=== PATIENT | male | born 1950 | race Caucasian/White ===

== ENCOUNTER 2020-02-13 09:13 | Inpatient (IN) | payer MEDICARE, OTHER, SELFPAY ==
[~2020-02-13] VITALS: Ht 167.6 cm; Wt 76.2 kg
--- NOTE | 2020-02-13 09:13 | NUR ---
Patient BIBA ALS, transferred to bed 3. Dr. Garcia, RT and RN are evaluating the patient at bedside.
[2020-02-13] MEDS ORDERED: ACETAMINOPHEN 650 MG SUPP RC ONE (09:20)
[2020-02-13] MEDS ORDERED: NACL 0.9% 1,000 ML IV ONE (09:20)
--- NOTE | 2020-02-13 09:29 | NUR ---
Lu Oreilly (daughter) [phone].
[2020-02-13 09:39] VITALS: BP 102/59
[2020-02-13 09:42] LABS: BASOPHILS % (AUTO) 0.1 % (0.0-2.0); HEMATOCRIT 40.3 % (36-52); HEMOGLOBIN 13.7 g/dL (12.0-18.0); LYMPHOCYTES # (AUTO) 0.3 K/uL (2.0-11.5); LYMPHOCYTES % (AUTO) 2.1 % (20.5-51.1); MEAN CORPUSCULAR HEMOGLOBIN 29 pg (27-31); MEAN CORPUSCULAR HGB CONC 34 g/dL (33-37); MEAN CORPUSCULAR VOLUME 84.1 fL (80-94); MONOCYTES # (AUTO) 0.7 K/uL (0.8-1.0); MONOCYTES % (AUTO) 5.1 % (1.7-9.3); NEUTROPHILS # (AUTO) 11.7 K/uL (1.8-7.7); NEUTROPHILS % (AUTO) 92.7 % (42.2-75.2); PLATELET COUNT (AUTO) 336 K/uL (140-450); RED BLOOD CELL COUNT(AUTO) 4.79 MIL/uL (4.20-6.10); RED CELL DISTRIBUTION WIDTH 13.9 % (11.6-13.7); WHITE BLOOD COUNT (AUTO) 12.7 K/uL (4.8-10.8)
[2020-02-13 09:58] LABS: PROTHROMBIN TIME 11.8 secs (10.8-13.4)
[2020-02-13 10:00] LABS: ALBUMIN 2.3 g/dL (3.4-5.0); ANION GAP 15.3 (8-16); CARBON DIOXIDE 25.4 mmol/L (21-32); CREATININE 1.9 mg/dL (0.6-1.3); POTASSIUM 3.7 mmol/L (3.5-5.1); TOTAL BILIRUBIN 1.4 mg/dL (0.0-1.0)
--- NOTE | 2020-02-13 10:00 | NUR ---
69/M FROM EMS BEING BAGGED UPON ARRIVAL DUE TO AGONAL RESPIRATIONS. UPON TRANSFER TO ED BED, PT BECAME MORE ALERT AND REPSONSIVE. ABLE TO FOLLOW COMMANDS AND WAS SWITCHED TO NRB AND TOLERATED WELL. AT THIS TIME PT IS ABLE TO FOLLOW COMMANDS AND IS TOLERATING NRB WELL WITH 91% SPO2.
[2020-02-13 10:14] LABS: LACTATE DEHYDROGENASE 414 U/L (85-227)
--- NOTE | 2020-02-13 11:30 | NUR ---
PT REMAINS ON NRB, NO ACUTE CHANGES. PT TOLERATING NRB WELL.
--- NOTE | 2020-02-13 13:04 | NUR ---
SPOKE WITH FAMILY -- ROBERT, UPDATED ON PLAN OF CARE. ALL QUESTIONS ANSWERED.
--- NOTE | 2020-02-13 14:00 | NUR ---
MULTIPLE ATTEMPTS MADE TO CATHETERIZE PATIENT. DR KIM MADE AWARE.
[2020-02-13] MEDS ORDERED: TAMS0.4C96 PO (19:27)
[2020-02-13] MEDS: LORazepam 2 MG/ML VIAL IM/IVP PRN (19:37)
[2020-02-13] MEDS ORDERED: LORazepam 2 MG/ML VIAL ONE (19:37)
--- NOTE | 2020-02-13 19:40 | NUR ---
RT CALLED AND AT BEDSIDE. RSV, FLU, ANTIGEN, AND NOVEL SWABS COLLECTED.
[2020-02-13 20:20] LABS: APPEARANCE,URINE CLOUDY (CLEAR); BILIRUBIN,URINE 1+ (NEGATIVE); BLOOD, URINE 2+ (NEGATIVE); COLOR,URINE ORANGE (YELLOW); LEUKOCYTE ESTERASE ,URINE NEGATIVE (NEGATIVE); NITRITE, URINE NEGATIVE (NEGATIVE); PH,URINE 5.5 (5.0-9.0); UGLUCOSE TRACE (NEGATIVE)
[2020-02-13 20:29] LABS: RBC,URINE 20-50 /HPF (0-5)
[2020-02-13 20:30] LABS: URINE AMORPHOUS URATE 1+ /HPF (None Seen); WBC,URINE 0-5 /HPF (0-5)
[2020-02-13] MEDS ORDERED: DOCUSATE SODIUM 100 MG GELCAP PO PRN (23:05)
[2020-02-13] MEDS ORDERED: HYDROcodone/APAP 5/325 MG 1 TAB TAB PO PRN (23:05)
[2020-02-13] MEDS ORDERED: ALBUTEROL HFA MDI 90 MCG/ACTUATION 8 GM INH PRN (23:05)
[2020-02-13] MEDS ORDERED: POTASSIUM CHLORIDE 10 MEQ TABER PO PRN (23:05)
[2020-02-13] MEDS: NACL 0.9% 1,000 ML IV SCH (23:05)
[2020-02-13] MEDS ORDERED: MAG SULF 2000 MG/WATER PREMIX 50 ML IV PRN (23:05)
[2020-02-13] MEDS ORDERED: MORPHINE SULFATE 2 MG/ML SYR IVP PRN (23:05)
[2020-02-13] MEDS ORDERED: ZOLPIDEM 5 MG TAB PO PRN (23:05)
[2020-02-13] MEDS ORDERED: ONDANSETRON 4 MG/2 ML VIAL IM/IVP PRN (23:05)
[2020-02-13] MEDS ORDERED: LORazepam 2 MG/ML VIAL IM/IVP PRN (23:05)
--- NOTE | 2020-02-13 23:17 | NUR ---
SPOKE TO ROEL AND DISCUSSED PATIENT CONDITION.
--- NOTE | 2020-02-13 23:19 | NUR ---
EMERGENCY CONTACT. - KATHY PATEL [phone]. TURKISH SPEAKING.
[2020-02-13] MEDS: ENOXAPARIN 80 MG/0.8 ML SYR SUBQ SCH (23:30)
--- NOTE | 2020-02-14 00:16 | NUR ---
PATIENT O2SAT @ 87% ON NON-REBREATHER 15L/MIN. PATIENT A&O X 4. RT CALLED TO EVALUATE PATIENT.
[2020-02-14 00:56] LABS: THYROID STIMULATING HORMONE 0.08 uIU/mL (0.34-3.74)
[2020-02-14 00:59] LABS: MAGNESIUM 0.5 mg/dL (1.8-2.4)
[2020-02-14 01:00] LABS: PHOSPHORUS 0.3 mg/dL (2.5-4.9)
--- NOTE | 2020-02-14 01:01 | NUR ---
primary nurse made aware of patient critical lab values.
[2020-02-14 01:46] LABS: BARBITURATE, URINE NEGATIVE ng/ml (NEG <=200); BENZODIAZEPINE, URINE NEGATIVE ng/mL (NEG <=200); CANNABINOID, URINE NEGATIVE ng/mL (NEG <=50); COCAINE, URINE NEGATIVE ng/mL (NEG <=300); OPIATE, URINE NEGATIVE ng/mL (NEG <=2000); PHENCYCLIDINE SCREEN,URINE NEGATIVE ng/mL (NEG <=25)
--- NOTE | 2020-02-14 02:30 | NUR ---
GRIPPER MACHINE OPERATOR FOR . GAVE NEW ORDERS FOR REPEATE TROPONIN @ 0600, AND NEUTRAPHOS 1 PAKET TID.
--- NOTE | 2020-02-14 02:43 | NUR ---
YONG NASAL SWAB WAS INVALID, PER LAB PCR NEEDS TO BE SENT. ERMD MADE AWARE.
--- NOTE | 2020-02-14 03:19 | NUR ---
RT AT BEDSIDE ASSESSING PATIENT.
--- NOTE | 2020-02-14 05:49 | NUR ---
0530 PLACED PATIENT ON BIPAP PER DR MISTRY. SETTING ARE IPAP 18 EPAP8 RR 20 100% FIO2. PATIENT SATING 87 AT THIS TIME
[2020-02-14 06:50] VITALS: BP 111/72
--- NOTE | 2020-02-14 07:17 | NUR ---
PATIENT HAS BEEN SCREENED AND CATEGORIZED MODERATE NUTRITION RISK. PATIENT WILL BE SEEN WITHIN 3-5 DAYS OF ADMISSION. 02/16/20 - 02/18/20 YAMIL KHAN MBA, RD
--- NOTE | 2020-02-14 07:25 | NUR ---
GAVE REPORT TO SAMY CORDERO, TRANSFER OF CARE.
[2020-02-14 07:50] LABS: RSV NEGATIVE (NEGATIVE)
[2020-02-14] MEDS ORDERED: AZITHROMYCIN 250 MG in DEXTROSE 5% 250 ML IV SCH (09:00)
[2020-02-14] MEDS ORDERED: LOVENOX 1MG/KG Q12H SUBQ SCH (09:00)
[2020-02-14 09:25] LABS: BASOPHILS % (AUTO) 0.1 % (0.0-2.0); EOSINOPHILS % (AUTO) 0.3 % (0.0-4.0); HEMATOCRIT 40.1 % (36-52); HEMOGLOBIN 13.7 g/dL (12.0-18.0); LYMPHOCYTES # (AUTO) 0.4 K/uL (2.0-11.5); LYMPHOCYTES % (AUTO) 4.4 % (20.5-51.1); MEAN CORPUSCULAR HEMOGLOBIN 29 pg (27-31); MEAN CORPUSCULAR HGB CONC 34 g/dL (33-37); MEAN CORPUSCULAR VOLUME 84.9 fL (80-94); MONOCYTES # (AUTO) 0.6 K/uL (0.8-1.0); NEUTROPHILS # (AUTO) 8.5 K/uL (1.8-7.7); NEUTROPHILS % (AUTO) 89.2 % (42.2-75.2); PLATELET COUNT (AUTO) 341 K/uL (140-450); RED BLOOD CELL COUNT(AUTO) 4.72 MIL/uL (4.20-6.10); RED CELL DISTRIBUTION WIDTH 14.4 % (11.6-13.7); WHITE BLOOD COUNT (AUTO) 9.5 K/uL (4.8-10.8)
[2020-02-14] MEDS: ASCORBIC ACID 500 MG TAB PO SCH (10:32)
[2020-02-14] MEDS: TAMSULOSIN 0.4 MG CAP PO SCH (10:32)
[2020-02-14] MEDS: ENOXAPARIN 80 MG/0.8 ML SYR SUBQ SCH ×2 (10:36→21:54)
[2020-02-14 10:38] VITALS: BP 110/59
[2020-02-14 10:38] LABS: CHOL/HDL RATIO 8.1 (1-4.5)
[2020-02-14 10:42] LABS: ALBUMIN 2.2 g/dL (3.4-5.0); ANION GAP 10.5 (8-16); CARBON DIOXIDE 29.9 mmol/L (21-32); CREATININE 1.3 mg/dL (0.6-1.3); MAGNESIUM 3.7 mg/dL (1.8-2.4); PHOSPHORUS 3.5 mg/dL (2.5-4.9); POTASSIUM 4.4 mmol/L (3.5-5.1); TOTAL BILIRUBIN 1.1 mg/dL (0.0-1.0)
[2020-02-14] MEDS: SODIUM PHOS / POTASSIUM PHOS 1 PKT PDR PO SCH ×3 (10:48→17:10)
[2020-02-14] MEDS ORDERED: cefTRIAXone 1,000 MG VIAL ONE (10:51)
[2020-02-14] MEDS: NACL 0.9% 1,000 ML IV SCH ×2 (10:52→20:10)
[2020-02-14] MEDS: AZITHROMYCIN 250 MG TAB PO SCH (11:03)
--- NOTE | 2020-02-14 11:28 | NUR ---
SOCIAL WORK NOTE: Patient's Orientation Unable To Assess Information Provided By ROEL PATEL - SON Comments SW WAS UNABLE TO MEET PATIENT AT BEDSIDE. SW COMPLETED ASSESSMENT WITH PATIENT'S SON. Business Analytics Analyst, Realtionship and Phone Number ROEL PATEL SON' [phone] Healthcare Power of Plant Health Care Technician No Does Patient Have a POLST No Identifying Problems No Social Work Triggers Is A Social Work Consult Needed No Mandate Report Filed No Explanation Of Identifying Problems PATIENT IS A 69-YEAR-OLD MAEL ADMITTED FOR SUSPECTED COVID. PATIENT HAS PMHX OF ARTHRITIS, ANXIETY, HLD, AND BPH. NO HX OF MENTAL HEALTH OR SUBSTANCE ABUSE WAS REPORTED. Admitted From Home Pre-Admission Level Of Functioning Status Independent/Ambulatory Prior Resources/Services Used In Last 12 Months No Prior Resources Used Prior DME No Prior DME Used Dialysis Comments N/A Living Situation Lives With Family House Patient Had Caregiver No Home Support No Caregiver Issues Financial Issues No Known Financial Issue Referral To The Financial Counselor Needed No Factors/Needs No D/C Needs Identified Pt/Rep Participated In Discharge Plan Yes Patient/Family Agress With Discharge Plan Yes Discharge Plan Comments TENTATIVE DISCHARGE PLAN IS FOR PATIENT TO RETURN HOME. DC Plan Status Initiated
[2020-02-14] MEDS: VITAMIN D 400 IU TAB PO SCH (11:59)
[2020-02-14 14:13] VITALS: BP 117/68
[2020-02-14 18:50] VITALS: BP 105/65
--- NOTE | 2020-02-14 19:42 | NUR ---
Hand off report given to Sheri CORDERO for continuation of nursing care
--- NOTE | 2020-02-14 19:42 | NUR ---
RECEIVED REPORT FROM CONSUELO PABLO FOR CONTINUATION OF CARE AT THIS TIME.
--- NOTE | 2020-02-14 20:15 | NUR ---
PT SITTING UPRIGHT IN BED, PT IS AWAKE A/OX4 AND COMMUNICATING WITH ME IN SUDANESE. PT REQUESTED THAT I PUT HIS PHONE TO CHARGE IN HIS ROOM USING HIS SLOT EDITOR. [employer] [employer] ADMIN. PT TOLERATED WELL. PT ON BIPAP SAO2@96%. BED IS LOCKED AND IN LOWEST POSITION. SIDE RAILSX1. NO DISTRESS NOTED AT THIS TIME. NS RUNNING PER MD ORDERS. LIGHTS TURNED OFF PER PT REQUEST. WILL CONTINUE TO MONITOR.
--- NOTE | 2020-02-14 21:55 | NUR ---
PER DAUGHTER RANI PT HAS NKA AND PMH OF ELEVATED CHOLESTEROL, ANXIETY, AND ARTHRITIS.
--- NOTE | 2020-02-14 21:55 | NUR ---
SPOKE WITH THE PTS DAUGHTER virginia-[phone] PER THE PTS REQUEST BECAUSE HE BELIEVED THAT SHE WAS GOING TO BRING HIM BOTTLES OF WATER TO DRINK. THE PT'S DAUGHTER STATED THAT IT WAS A MISUNDERSTANDING. I PROVIDED THE PTS DAUGHTER WITH A STATUS UPDATED
--- NOTE | 2020-02-14 22:00 | NUR ---
PT RESTING. PT ON BIPAP SAO2@91%. NO VISIBLE DISTRESS NOTED. BED IS LOCKED AND IN LOWEST POSITION. SIDE RAILSX1. NO DISTRESS NOTED AT THIS TIME. NS RUNNING PER MD ORDERS. CALL LIGHT WITHIN REACH. WILL CONTINUE TO MONITOR
--- NOTE | 2020-02-14 22:30 | NUR ---
RT CALLED DUE TO PT DESATTING TO 75% ON BIPAP
--- NOTE | 2020-02-14 22:48 | NUR ---
RT AND EMT AT BEDSIDE. PT SITTING UPRIGHT IN BED AND REMOVED HIS BIPAP
--- NOTE | 2020-02-14 23:00 | NUR ---
ACCORDING TO [facility] JIG BOX OPERATOR, PTS NEW ROOM ON THE TELEMETRY FLOOR IS NOT CLEAN OR READY FOR PT TRANSFER AT THIS TIME.
[2020-02-14 23:58] VITALS: BP 87/52
--- NOTE | 2020-02-15 00:22 | NUR ---
CALLED REPORT TO CONSUELO ALONZO FOR TRANSFER OF CARE AND ADMISSION TO TELEMETRY FLOOR.
--- NOTE | 2020-02-15 01:10 | NUR ---
Patient will be admitted to care of . Admited to TELEMETRY. Will go to room 102A. Belongings list completed. Report to CONSUELO ALONZO.
--- NOTE | 2020-02-15 01:10 | NUR ---
RECEIVED PATIENT FROM ER VIA GURNEY. PATIENT IS ABLE TO MAKE NEEDS KNOWN. RESPIRATIONS TACHYPNEIC AND SLIGHTLY LABORED UPON EXERTION. CONTINUES ON BIPAP. RT AT BEDSIDE. SKIN ASSESSMENT COMPLETED. SKIN WARM, DRY AND INTACT. SALINE LOCK TO RIGHT WRIST 18G PATENT/INTACT. IV SITE TO LEFT AC 20G PATENT/INTACT, INFUSING FLUIDS WELL. NO C/O PAIN. NO S/S ACUTE DISTRESS. ABDOMEN SOFT, NONTENDER, NONDISTENDED. BOWEL SOUNDS ACTIVE X4 QUADRANTS. PATIENT IS CONTINENT OF B/B. PLAN OF CARE DISCUSSED. PATIENT ORIENTED TO ROOM/STAFF AND CALL LIGHT. MRSA SCREEN COMPLETED. ISOLATION PRECAUTIONS OBSERVED BY ALL STAFF. SAFETY PRECAUTIONS IN PLACE. FREQUENT ROUNDS BY ALL STAFF. CALL LIGHT WITHIN REACH.
--- NOTE | 2020-02-15 01:21 | NUR ---
PT TRANSPORTED FROM ED TO 102A PT TOLERATED TRANSPORT FAIRLY WELL. PT SCOOTED FROM TRANSPORT BED TO ROOM BED WITH MINIMAL HELP. PT WAS REMOVED FROM VISION BIPAP AND PLACED ON VOCSN DUE TO TRANSPORT. VISION BIPAP DOES NOT HAVE BACK UP BATTERY & VOCSN DOES. PT REMAINS ON VOCSN AT THIS TIME WITH ALL SETTINGS MATCHING VISION.
--- NOTE | 2020-02-15 03:30 | NUR ---
PATIENT TRIED TO GET OUT OF BED TO USE RESTROOM. PROVIDED EDUCATION REGARDING USE OF BEDPAN AND URINAL FOR SAFETY AND TO GIVE ADEQUATE REST PERIODS. PATIENT VERBALIZED UNDERSTANDING. PATIENT SAFELY IN BED. FREQUENT ROUNDS MADE BY ALL STAFF.
[2020-02-15 04:00] VITALS: BP 107/71
[2020-02-15] MEDS: NACL 0.9% 1,000 ML IV SCH ×3 (04:22→23:36)
--- NOTE | 2020-02-15 04:47 | NUR ---
PT WAS PLACE BACK ON VISION W/ NO CHANGES TO SETTINGS ONCE AGAIN
--- NOTE | 2020-02-15 05:00 | NUR ---
PATIENT ASLEEP IN BED. BIPAP IN PLACE. NO EPISODES OF TRYING TO GET OUT OF BED OR REMOVING MASK. FREQUENT ROUNDS BY ALL STAFF. ISOLATION PRECAUTIONS OBSERVED BY ALL STAFF.
--- NOTE | 2020-02-15 06:49 | NUR ---
FNS REFERRAL RECEIVED ON 02/15/20 FOR UNKNOWN / N/A NUTRITIONAL HX PER RN I/A. PT CHART REVIEWED (BMI, BS, DIET ORDER, H&P...). PATIENT CONTINUES TO BE CATEGORIZED MODERATE NUTRITION RISK. PATIENT WILL BE SEEN WITHIN 3-5 DAYS OF ADMISSION. 02/16/20 - 02/18/20 YAMIL KHAN MBA, RD
--- NOTE | 2020-02-15 07:42 | NUR ---
ENDORSED TO AM SHIFT NURSE FOR CONTINUITY OF CARE.
[2020-02-15 08:00] VITALS: BP 105/66
[2020-02-15 08:19] LABS: T4 (THYROXINE) 7.4 ug/dL (4.5-12.0)
[2020-02-15 08:42] LABS: BASOPHILS % (AUTO) 0.1 % (0.0-2.0); HEMATOCRIT 40.3 % (36-52); HEMOGLOBIN 13.6 g/dL (12.0-18.0); LYMPHOCYTES # (AUTO) 0.4 K/uL (2.0-11.5); LYMPHOCYTES % (AUTO) 4.1 % (20.5-51.1); MEAN CORPUSCULAR HEMOGLOBIN 29 pg (27-31); MEAN CORPUSCULAR HGB CONC 34 g/dL (33-37); MONOCYTES # (AUTO) 0.5 K/uL (0.8-1.0); MONOCYTES % (AUTO) 5.3 % (1.7-9.3); NEUTROPHILS # (AUTO) 8.3 K/uL (1.8-7.7); NEUTROPHILS % (AUTO) 90.5 % (42.2-75.2); PLATELET COUNT (AUTO) 370 K/uL (140-450); RED BLOOD CELL COUNT(AUTO) 4.68 MIL/uL (4.20-6.10); RED CELL DISTRIBUTION WIDTH 14.3 % (11.6-13.7); WHITE BLOOD COUNT (AUTO) 9.1 K/uL (4.8-10.8)
[2020-02-15 09:33] LABS: ALBUMIN 2.1 g/dL (3.4-5.0); ANION GAP 12.5 (8-16); CARBON DIOXIDE 28.2 mmol/L (21-32); CREATININE 1.1 mg/dL (0.6-1.3); MAGNESIUM 3.2 mg/dL (1.8-2.4); PHOSPHORUS 3.3 mg/dL (2.5-4.9); POTASSIUM 3.7 mmol/L (3.5-5.1)
[2020-02-15] MEDS: VITAMIN D 400 IU TAB PO SCH (10:20)
[2020-02-15] MEDS: SODIUM PHOS / POTASSIUM PHOS 1 PKT PDR PO SCH ×3 (10:21→17:36)
[2020-02-15] MEDS: AZITHROMYCIN 250 MG TAB PO SCH (10:21)
[2020-02-15] MEDS: ASCORBIC ACID 500 MG TAB PO SCH (10:21)
[2020-02-15] MEDS: TAMSULOSIN 0.4 MG CAP PO SCH (10:21)
[2020-02-15] MEDS: ENOXAPARIN 80 MG/0.8 ML SYR SUBQ SCH ×2 (10:22→21:25)
--- NOTE | 2020-02-15 10:30 | NUR ---
SCHEDULED MEDICATIONS GIVEN. EDUCATION PROVIDED. PATIENT INITIALLY REFUSE LOVENOX, THEN EXPLAINED TO THE PT REGARDING THE INDICATION OF LOVENOX AND POSSIBLE HAVE BLOOD CLOT IF NOT GETTING OT. PATIENT VERBALIZED UNDERSTANDING AND AGREED TO GET IT. SAFETY MEASURES IN PLACE, CALL LIGHT WITHIN REACH. WILL CONTINUE TO MONITOR.
[2020-02-15 12:00] VITALS: BP 104/64
--- NOTE | 2020-02-15 13:40 | NUR ---
HUNG NEW BAG OF IVF NS. NETRO-PHOS GIVEN. EDUCATION PROVIDED. PATIENT AWAKE WITH BIPAP. RT CALLED TO CHECK THE BIPAP MACHINE WITH HIGH PITCHED ALARM. RT STATED WILL CHECK THE PATIENT. WILL CONTINUE TO MONITOR.
[2020-02-15 16:00] VITALS: BP 112/62
--- NOTE | 2020-02-15 16:53 | NUR ---
LATE ENTRY: DISCHARGE PLANNING: CRYPTOLOGICAL TECHNICIAN CECILIO OF [facility] PROVIDED ME WITH AUTH #[id number]. Addendum: 02/18/20 at 0902 by Tash Addison CM REMAINS INTUBATED TO VENT, FIO2 100%, PEEP 14. SEDATED WITH PROPOFOL. ON REMDESIVIR, DECADRON, AZITHROMYCIN, ROCEPHIN. CONTACTED [facility] AT [phone], ABLE TO SPEAK TO CRYPTOLOGICAL TECHNICIAN ALLEN AFTER 35 MINS ON HOLD. PER KEITH, STAY IS AUTHORIZED UNTIL DISCHARGE. HE ALSO CONFIRMED THAT THEY RECEIVED 21 PAGES OF UPDATED CLINICALS.
--- NOTE | 2020-02-15 18:54 | NUR ---
PATIENT WAS FOUND PULLED OUT IV, PULLED OUT BIPAP, TRYING TO GO TO THE RESTROOM. RT CALLED AND PUT BACK ON BIPAP. ASKED AUSTRIAN SPEAKING STORE LOSS PREVENTION MANAGER TO INFORM PATIENT TO STAY IN BED, AND USE URINARY INSTEAD OF GOING OUT BED, ALSO USE CALL LIGHT IF NEEDS HELP. PATIENT WAS ABLE TO USE THE URINARY EARLIER TODAY, BUT GOT CONFUSED NOW. PATIENT'S FAMILY MEMBERS AT OUTSIDE OF THE HOSPITAL. NEW IV STARTED AT LEFT FOREARM 22G WITH 1ST ATTEMPT. RECONNECT THE IVF. INFUSING WELL. PATIENT REMAIN IN BED AND CALM AT THIS POINT. WILL ENDORSE PATIENT TO UX ENGINEER RN FOR CONTINUITY OF CARE.
--- NOTE | 2020-02-15 19:25 | NUR ---
ENDORSED PATIENT TO REWINDER OPERATOR HELPER RN FOR CONTINUITY OF CARE. PATIENT WITH BIPAP IN STABLE CONDITION.
--- NOTE | 2020-02-15 19:26 | NUR ---
RECEIVED REPORT FROM ALMAZ AYERS. PT AOX2, CONFUSED, ON BIPAP, NO S/S RESPIRATORY DISTRESS. NO C/O PAIN AT THIS TIME. IV SITE LFA 22G PATENT INTACT, INFUSING IVF ORDERED. SAFETY MEASURES IN PLACE. CALL LIGHT WITHIN REACH. WILL CONTINUE TO MONITOR
[2020-02-15 20:00] VITALS: BP 116/70
--- NOTE | 2020-02-15 21:30 | NUR ---
ADMINISTERED SCHEDULED MEDICATION, TOLERATED WELL. WILL CONTINUE TO MONITOR
[2020-02-15] MEDS: LORazepam 2 MG/ML VIAL IM/IVP PRN (23:30)
[2020-02-16] VITALS (14 sets, daily range): BP systolic 97–134; BP diastolic 60–81
--- NOTE | 2020-02-16 01:00 | NUR ---
PT TOOK OFF BIPAP, PULLED OUT IV LINES, GOT UP AND TRIED TO WALK OUT THE DOOR. CALLED RT AND ASSET PROTECTION ASSISTANT TO BEDSIDE. PT ATTEMPTED TO HIT. REORIENTED PT BACK TO BED. PLACED BIPAP BACK ONTO PT, O2 SAT SLOWLY CLIMBING TO 86%, PT IS STABLE, INSTRUCTED PT TO KEEP BIPAP ON AND EXPLAINED THE IMPORTANCE OF IT, NO DISTRESS NOTED. WILL CONTINUE TO MONITOR
--- NOTE | 2020-02-16 03:14 | NUR ---
BIPAP IN PLACE, O2 SAT 89%, RESPIRATIONS EVEN AND UNLABORED. NO S/S ACUTE DISTRESS NOTED. WILL CONTINUE TO MONITOR
--- NOTE | 2020-02-16 05:30 | NUR ---
PT PULLED OUT BIPAP. PLACED BACK ON. O2 SAT SLOWLY CLIMBING T0 87%,. PT IS IN STABLE CONDITION. WILL CONTINUE TO MONITOR. MADE AWARE. PLACED NEW ORDER FOR SITTER.
--- NOTE | 2020-02-16 07:01 | NUR ---
FNS CONSULT FOR MALNUTRITION RECEIVED ON 02/16/20. PATIENT IS RESCREENED BY RD AND NOW CATEGORIZED HIGH NUTRITIONAL RISK. PATIENT WILL BE SEEN TODAY 02/16/[address] INITIAL ASSESSMENT/RECOMMENDATIONS WILL BE CHARTED. YAMIL KHAN MBA, RD
--- NOTE | 2020-02-16 07:20 | NUR ---
PER NIGHT NURSE PT SIGNED DNR STATUS AND REFUSED TO BE INTUBATED. ER DOCTOR EXPLAINED RISK AND CONSEQUENCES, ATTENDING PAGED TO CHANGE FULL CODE TO DNR. JUSTINO IN CHART Addendum: 02/16/20 at 1115 by Do Clayton RN DISREGARD ABOVE NOTE, WRONG PT.
--- NOTE | 2020-02-16 07:39 | NUR ---
ENDORSED PT TO DAY RN FOR CONTINUITY OF CARE. PT IS IN STABLE CONDITION
--- NOTE | 2020-02-16 07:40 | NUR ---
RECEIVED REPORT FROM NIGHT NURSE FOR CONTINUITY OF CARE. PT IS STABLE. PT ON BIPAP, PT HAS LFA 22G INFUSING NS AT 100, PT AAOX1 SLOVENIAN SPEAKING, SAFETY MEASURES IN PLACE, WILL CONTINUE TO MONITOR,
--- NOTE | 2020-02-16 09:20 | NUR ---
02/16/20 RD INITIAL ASSESSMENT COMPLETED PLEASE REFER TO NUTRITION ASSESSMENT UNDER CARE ACTIVITY FOR ESTIMATED NUTRITIONAL NEEDS. RD RECOMMENDATIONS: 1. RECOMMEND CONTINUE MECHANICAL SOFT DIET. 2. WILL ADD HEALTHSHAKES TID WITH MEALS. 3. ADJUST DIET NEEDED PER SWALLOW EVALUATION RECOMMENDATIONS. 4. F/U 2-3 DAYS; HIGH RISK YAMIL KHAN MBA, RD
[2020-02-16] MEDS: ENOXAPARIN 80 MG/0.8 ML SYR SUBQ SCH ×2 (09:44→21:00)
[2020-02-16] MEDS: TAMSULOSIN 0.4 MG CAP PO SCH (09:45)
[2020-02-16] MEDS: SODIUM PHOS / POTASSIUM PHOS 1 PKT PDR PO SCH ×3 (09:45→13:34)
[2020-02-16] MEDS: VITAMIN D 400 IU TAB PO SCH (09:45)
[2020-02-16] MEDS: ASCORBIC ACID 500 MG TAB PO SCH (09:46)
[2020-02-16] MEDS: AZITHROMYCIN 250 MG TAB PO SCH (09:46)
--- NOTE | 2020-02-16 10:02 | NUR ---
ADMINISTERED SCHEDULED MEDICATION, MEDICATION EDUCATION PROVIDED. PT TOLERATED WELL. PT IS STABLE, WILL CONTINUE TO MONITOR.
[2020-02-16 10:04] LABS: BASOPHILS # (AUTO) 0.1 K/uL (0.00-0.22); BASOPHILS % (AUTO) 0.5 % (0.0-2.0); HEMOGLOBIN 13.8 g/dL (12.0-18.0); LYMPHOCYTES # (AUTO) 0.9 K/uL (2.0-11.5); MEAN CORPUSCULAR HEMOGLOBIN 29 pg (27-31); MEAN CORPUSCULAR HGB CONC 32 g/dL (33-37); MEAN CORPUSCULAR VOLUME 88.9 fL (80-94); MONOCYTES # (AUTO) 0.5 K/uL (0.8-1.0); NEUTROPHILS # (AUTO) 10.8 K/uL (1.8-7.7); NEUTROPHILS % (AUTO) 88.5 % (42.2-75.2); PLATELET COUNT (AUTO) 518 K/uL (140-450); RED BLOOD CELL COUNT(AUTO) 4.84 MIL/uL (4.20-6.10); RED CELL DISTRIBUTION WIDTH 14.4 % (11.6-13.7); WHITE BLOOD COUNT (AUTO) 12.2 K/uL (4.8-10.8)
[2020-02-16 10:39] LABS: ALBUMIN 2.3 g/dL (3.4-5.0); ANION GAP 23.6 (8-16); CARBON DIOXIDE 19.4 mmol/L (21-32); CREATININE 1.5 mg/dL (0.6-1.3); MAGNESIUM 2.6 mg/dL (1.8-2.4); PHOSPHORUS 6.9 mg/dL (2.5-4.9)
[2020-02-16 10:53] LABS: PHOSPHORUS 4.8 mg/dL (2.5-4.9)
--- NOTE | 2020-02-16 11:06 | NUR ---
RAPID RESPONSE CALLED TO PT ROOM. PT WAS INTUBATED BY DR. SWANSON. ETT 7.0 ETT SECURED @ 22 CM AT THE TEETH. PLACED ON MECHANICAL VENTILATION AC/VC, RR 14, VOLUME 500, PEEP +14, 100%. SATURATION STABLE AT 90%. VENT PLUGGED INTO RED OUTLET AND BMV AT BEDSIDE. NO SIGNS OF RESPIRATORY DISTRESS. WILL CONTINUE TO MONITOR.
[2020-02-16] MEDS ORDERED: PROPOFOL 1000 MG/100 ML PREMIX 100 ML IV ONE (11:08)
[2020-02-16] MEDS ORDERED: ETOMIDATE 20 MG/10 ML VIAL IVP ONE (11:11)
[2020-02-16] MEDS ORDERED: ROCURONIUM 50 MG/5 ML VIAL IV ONE (11:12)
--- NOTE | 2020-02-16 11:21 | NUR ---
ETOMIDATE 20MG AND ROCURONIUM 40MG GIVEN PER DR. SWANSON'S ORDER FOR INTUBATION, PT TOLERATED WELL, WILL CONTINUE TO MONITOR.
[2020-02-16] MEDS: PROPOFOL 1000 MG/100 ML PREMIX 100 ML IV PRN ×2 (11:25→23:40)
[2020-02-16] MEDS ORDERED: COMMUNICATION ORDER MC PRN (11:50)
--- NOTE | 2020-02-16 11:55 | NUR ---
ENDORSE PT TO ICU NURSE FOR CONTINUITY OF CARE, PT IS ON VENT. PT'S DAUGHTER DON NOTIFIED PT IS IN ICU,
--- NOTE | 2020-02-16 11:56 | NUR ---
RECEIVED BEDSIDE REPORT FROM TELE NURSE ADAM, PT HAS JUST BEEN INTUBATED, ETT 7.0 TAPED ON 22 TO THE LIP, PT ON VENT ACVC FIO2 100%, RATE 14, PEEP 14, TV 500ML, TOLERATING WELL, SATURATING @ 100%, OGT IN PLACE, CONFIRMED PLACEMENT BY AUSCULTATION, HINES CATH IN PLACE DRAINING TO GRAVITY, INITIAL ASSESSMENT DONE, ALL SAFETY PRECAUTION MET, CALL LIGHT WITHIN REACH, WILL CONTINUE TO MONITOR.
[2020-02-16] MEDS: NACL 0.9% 1,000 ML IV SCH ×2 (12:54→21:05)
--- NOTE | 2020-02-16 13:47 | NUR ---
[email or web address] HELD D/T PT PHOSPHATE HAS BEEN TRENDING UP, YESTERDAY 6.9, TODAY 4.8.
--- NOTE | 2020-02-16 14:40 | NUR ---
PAGED DR VELAZQUEZ TO REPORT ABG RESULTS, WAITING FOR CALL BACK.
[2020-02-16] MEDS ORDERED: remdesivir CLINICAL MONITORING 1 EA MISC MC PRN (15:20)
--- NOTE | 2020-02-16 15:20 | NUR ---
RECEIVED A CALL BACK FROM DR VELAZQUEZ, ORDERED TO INCREASE RATE TO 16. REPEAT ABG IN AM.
--- NOTE | 2020-02-16 15:52 | NUR ---
*ST NOTES / CASE MANAGEMENT* Order received, chart reviewed. Pt s/p CELL TESTER d/t desaturation on BiPAP. Pt intubated today around 11:06AM per EMR notes. Cancel swallow eval order at this time. -Chantel Herman MA, CCC-GREY INSPECTOR
[2020-02-16] MEDS ORDERED: REMDESIVIR (EUA) 200 MG in NACL 0.9% 100 ML IV SCH (17:00)
--- NOTE | 2020-02-16 19:20 | NUR ---
ENDORSED PT TO [place] REDEVELOPMENT SPECIALIST NURSE FOR CONTINUOUS OF CARE.
--- NOTE | 2020-02-16 19:30 | NUR ---
RECEIVED PT FROM DAY SHIFT. PT REMAINS ON DOCUMENTED SETTINGS, ETT SECURED AND PATENT. ALARMS ON AND FUNCTIONING, ALARMS ON AND FUNCTIONING. VENT PLUGGED INTO RED OUTLET, WILL CONTINUE TO MONITOR.
[2020-02-17] VITALS (23 sets, daily range): BP systolic 102–142; BP diastolic 60–87
[2020-02-17] MEDS: NACL 0.9% 1,000 ML IV SCH ×2 (04:06→17:56)
[2020-02-17] MEDS: PROPOFOL 1000 MG/100 ML PREMIX 100 ML IV PRN ×4 (04:14→23:30)
--- NOTE | 2020-02-17 04:22 | NUR ---
PT REMAINS ON DOCUMENTED SETTINGS, ETT SECURED AND PATENT WITH NO DISTRESS, ALARMS ON AND FUNCTIONING, VENT PLUGGED INTO RED OUTLET.
--- NOTE | 2020-02-17 07:20 | NUR ---
ENDORSED PT TO METAL TANK BUILDER NURSE FOR CONTINUOUS OF CARE. Addendum: 02/17/20 at 1957 by Radha Wilson RN WRONG TIME
--- NOTE | 2020-02-17 07:30 | NUR ---
RECEIVED BEDSIDE REPORT FROM EDUCATION COORDINATOR NURSE, PT SEDATED RASS -3, DRY WEIGHT 94.8KG, ON ETT TO VENT, FIO2 100%, PEEP 14, RATE 14, NO SOB NOTED, SATURATING @ 99%, IV TO R FA 22G PATENT INTACT, INFUSING PROPOFOL @25MCG/KG/HR, INFUSING WELL, AND NS @ 100ML/HR, INFUSING WELL, OGT IN PLACE, NO RESIDUAL NOTED, HINES CATH IN PLACE DRAINING TO GRAVITY, INITIAL ASSESSMENT DONE, ALL SAFETY PRECAUTION MET, CALL LIGHT WITHIN REACH, WILL CONTINUE TO MONITOR.
--- NOTE | 2020-02-17 08:30 | NUR ---
RECEIVED ON PB 840 VENTILATOR PLUGGED INTO RED OUTLET TOLERATING WELL WITHOUT INCIDENT TO AN ENDOTRACHEAL TUNE #7.0 SECURED AT 22cm TEETH/GUM LINE WITH AN ANCHOR FAST CUFF PRESSURE CHECKED NOTED AMBU BAG AT BEDSIDE LOC SEDATED RESTING COMFORTABLY NO APPARENT DISTRESS NOTED GOOD CHEST RISE AND AERATION THROUGHOUT BILATERAL LUNG AGUILAR AIRWAY PATENT
[2020-02-17 08:54] LABS: BASOPHILS % (AUTO) 0.2 % (0.0-2.0); EOSINOPHILS % (AUTO) 0.1 % (0.0-4.0); HEMATOCRIT 39.4 % (36-52); HEMOGLOBIN 12.8 g/dL (12.0-18.0); LYMPHOCYTES # (AUTO) 0.2 K/uL (2.0-11.5); LYMPHOCYTES % (AUTO) 1.8 % (20.5-51.1); MEAN CORPUSCULAR HEMOGLOBIN 29 pg (27-31); MEAN CORPUSCULAR HGB CONC 33 g/dL (33-37); MEAN CORPUSCULAR VOLUME 88.1 fL (80-94); MONOCYTES # (AUTO) 0.2 K/uL (0.8-1.0); MONOCYTES % (AUTO) 1.6 % (1.7-9.3); NEUTROPHILS # (AUTO) 11.7 K/uL (1.8-7.7); NEUTROPHILS % (AUTO) 96.3 % (42.2-75.2); PLATELET COUNT (AUTO) 271 K/uL (140-450); RED BLOOD CELL COUNT(AUTO) 4.47 MIL/uL (4.20-6.10); RED CELL DISTRIBUTION WIDTH 14.8 % (11.6-13.7); WHITE BLOOD COUNT (AUTO) 12.1 K/uL (4.8-10.8)
[2020-02-17] MEDS: ASCORBIC ACID 500 MG TAB PO SCH (09:15)
[2020-02-17] MEDS: FAMOTIDINE 20 MG TAB NG SCH (09:15)
--- NOTE | 2020-02-17 09:15 | NUR ---
DUE MEDICATIONS ADMINISTERED, PT TOLERATED WELL, NO DISTRESS NOTED, WILL CONTINUE TO MONITOR.
[2020-02-17] MEDS: VITAMIN D 400 IU TAB PO SCH (09:16)
[2020-02-17] MEDS: TAMSULOSIN 0.4 MG CAP PO SCH (09:16)
[2020-02-17] MEDS: AZITHROMYCIN 250 MG TAB PO SCH (09:17)
[2020-02-17 09:29] LABS: ALBUMIN 1.9 g/dL (3.4-5.0); CARBON DIOXIDE 27.3 mmol/L (21-32); CREATININE 0.9 mg/dL (0.6-1.3); MAGNESIUM 2.9 mg/dL (1.8-2.4); PHOSPHORUS 3.1 mg/dL (2.5-4.9); POTASSIUM 4.3 mmol/L (3.5-5.1); TOTAL BILIRUBIN 0.8 mg/dL (0.0-1.0)
--- NOTE | 2020-02-17 10:30 | NUR ---
RECEIVED CALL FROM RNHANNAH, PT INTUBATED, NEEDS RECOMMENDATION FOR ENTERAL FEEDS ESTIMATED NEEDS ARE BASED ON ACTUAL BODY WEIGHT 72.6 KGS ADJUSTED FOR COVID-19 DIAGNOSIS, VENT DEPENDENT-- CALORIES: [id number] KCAL/DAY (15-20 KCAL/KG) PROTEIN: 87-145 GRAMS PRO/DAY (1.2-2 GM/KG) FLUID: 2.2-2.9 L/DAY (30-40 ML/KG) RECOMMEND VITAL AF 1.2 @ 45 ML/HR + PROSOURCE BID BEGIN FEEDS AT 10 ML/HR CHECKING FOR TOLERANCE: PASSAGE OF STOOL & GAS, ABDOMINAL PAIN, NAUSEA, DIARRHEA, ABDOMINAL DISTENTION. INCREASE RATE 10 ML PER SHIFT TOLERATED TO GOAL RATE OF 35 ML/HR (OR FEEDING VOLUME OF 1080 MLS PER DAY). IF PRONE AND FEEDING ONLY 8 HRS PER DAY, WORK TOWARD GOAL RATE OF 135 ML/HR X 8 HRS PER DAY. TUBE FEEDING AT GOAL RATE WILL PROVIDE 1296 KCALS AND 60 GM PRO/DAY. WITH PROSOURCE BID & PROPOFOL @ 8.709 ML/DAY, PT WILL BE RECEIVING 1617 KCALS AND 90 GM PRO/DAY TO MEET 100% ESTIMATED ENERGY AND PROTEIN NEEDS PER DAY WHILE PT IS NOT RECEIVING FEEDING AT GOAL RATE, VOLUME MAY NOT BE ADEQUATE TO PROVIDE SUFFICIENT VITAMINS/MINERALS, RECOMMEND MULTIVITAMIN DAILY YANICK CRAMER RD
--- NOTE | 2020-02-17 11:48 | NUR ---
PAGED DR. DANISH JALLOHBANNER [phone] TO REVIEW ABG SAMPLE REPORT CALL BACK NUMBER [phone]
--- NOTE | 2020-02-17 11:51 | NUR ---
CALL BACK FROM DR. DANISH VELAZQUEZ REVIEWED ABG SAMPLE REPORT AND VENTILATOR SETTINGS FOREMENTIONED MD STATES "GREAT LEAVE IT LIKE THAT NO CHANGES"
[2020-02-17] MEDS: REMDESIVIR (EUA) 100 MG in NACL 0.9% 100 ML IV SCH (17:56)
--- NOTE | 2020-02-17 19:20 | NUR ---
ENDORSED PT TO HABITAT CONSERVATION PLANNER NURSE FOR CONTINUOS OF CARE.
--- NOTE | 2020-02-17 19:30 | NUR ---
RECEIVED REPORT FROM DAY SHIFT NURSE; PT SEDATED RASS-3 ON PROPOFOL DRIP @ 50 MCG/KG/MIN AND FENTANYL DRIP @ 2 MCG/KG/HR. ETT TO VENT ON 100% FIO2 PEEP 12 IN PRONE POSITION. SR 90S ON MONITOR, TRACE EDEMA NOTED, PALPABLE PULSES INTACT. ABD SOFT NON DISTENDED. HINES CATH IN PLACE DARK GIOVANI URINE NOTED. SKIN INTACT, BED LOCKED IN LOWEST POSITION. WILL CONTINUE TO OBSERVE.
--- NOTE | 2020-02-17 22:30 | NUR ---
PT PLACED IN SUPINE POSITION, CHG BATH GIVEN, LINEN CHANGED. PT TOLERATED FAIR. WILL CONTINUE TO OBSERVE.
[2020-02-18] VITALS (22 sets, daily range): BP systolic 75–144; BP diastolic 50–78
[2020-02-18] MEDS: NACL 0.9% 1,000 ML IV SCH ×3 (03:05→23:50)
[2020-02-18] MEDS: PROPOFOL 1000 MG/100 ML PREMIX 100 ML IV PRN ×4 (06:46→23:45)
--- NOTE | 2020-02-18 07:30 | NUR ---
RECEIVED BEDSIDE REPORT FROM MEN'S DESIGNER NURSE, PT SEDATED RASS -3, DRY WEIGHT 94.8KG, ON ETT TO VENT, FIO2 100%, PEEP 14, RATE 16, NO SOB NOTED, SATURATING @ 94%, IV TO R FA 22G PATENT INTACT, INFUSING PROPOFOL @40 MCG/KG/HR, INFUSING WELL, AND NS @ 100ML/HR, INFUSING WELL, OGT IN PLACE WITH FEEDING, HINES CATH IN PLACE DRAINING TO GRAVITY, INITIAL ASSESSMENT DONE, ALL SAFETY PRECAUTION MET, CALL LIGHT WITHIN REACH, WILL CONTINUE TO MONITOR.
[2020-02-18] MEDS: AZITHROMYCIN 250 MG TAB PO SCH (09:32)
[2020-02-18] MEDS: TAMSULOSIN 0.4 MG CAP PO SCH (09:33)
[2020-02-18] MEDS: ASCORBIC ACID 500 MG TAB PO SCH (09:33)
[2020-02-18] MEDS: VITAMIN D 400 IU TAB PO SCH (09:34)
[2020-02-18] MEDS: FAMOTIDINE 20 MG TAB NG SCH (09:34)
[2020-02-18] MEDS: ACETAMINOPHEN 325 MG TAB PO PRN (09:55)
[2020-02-18 10:12] LABS: BASOPHILS % (AUTO) 0.1 % (0.0-2.0); HEMATOCRIT 40.1 % (36-52); LYMPHOCYTES # (AUTO) 0.2 K/uL (2.0-11.5); LYMPHOCYTES % (AUTO) 1.9 % (20.5-51.1); MEAN CORPUSCULAR HEMOGLOBIN 29 pg (27-31); MEAN CORPUSCULAR HGB CONC 32 g/dL (33-37); MEAN CORPUSCULAR VOLUME 89.2 fL (80-94); MONOCYTES # (AUTO) 0.2 K/uL (0.8-1.0); MONOCYTES % (AUTO) 1.9 % (1.7-9.3); NEUTROPHILS # (AUTO) 8.7 K/uL (1.8-7.7); NEUTROPHILS % (AUTO) 96.1 % (42.2-75.2); PLATELET COUNT (AUTO) 203 K/uL (140-450); RED BLOOD CELL COUNT(AUTO) 4.49 MIL/uL (4.20-6.10); RED CELL DISTRIBUTION WIDTH 15.7 % (11.6-13.7)
[2020-02-18 10:25] LABS: ALBUMIN 1.9 g/dL (3.4-5.0); ANION GAP 11.9 (8-16); CARBON DIOXIDE 31.8 mmol/L (21-32); CREATININE 0.8 mg/dL (0.6-1.3); MAGNESIUM 3.1 mg/dL (1.8-2.4); PHOSPHORUS 3.6 mg/dL (2.5-4.9); POTASSIUM 4.7 mmol/L (3.5-5.1); TOTAL BILIRUBIN 0.7 mg/dL (0.0-1.0)
[2020-02-18 10:53] LABS: MAGNESIUM 3.1 mg/dL (1.8-2.4); PHOSPHORUS 3.6 mg/dL (2.5-4.9)
--- NOTE | 2020-02-18 14:00 | NUR ---
ENDORSED PT TO NAOMI RN FOR CONTINUOUS OF CARE.
--- NOTE | 2020-02-18 14:01 | NUR ---
RECEIVED REPORT FROM CONSUELO YOUNG. PT SUPINE IN BED, SEDATED TO RASS -3. ETT TO VENT: ACVC FIO2 100%, RR 16, PEEP 11, SPO2 89%, BREATHING EVEN AND UNLABORED NO SIGNS OF ACUTE DISTRESS NOTED. OG TUBE IN PLACE: VITAL AF 35 ML/HR. RENZO SOFT WRIST RESTRAINS IN PLACE. HINES CATHETER IN PLACE, DRAINING TO GRAVITY. L FA 20 G CLEAN DRY INTACT, INFUSING PROPOFOL @ 35 MCG/KG/MIN, NS @ 100 ML/HR. HOB 30 DEGREES, ACCOUNT CONTACT ASSOCIATE IN PLACE. SAFETY MEASURES IN PLACE.
--- NOTE | 2020-02-18 14:03 | NUR ---
8SPOKE TO DR TEAGUE REGARDING PT BLOOD PRESSURE IS TRENDING DOWN LAST BP 87/57 AND 84/54. PER DR ERWIN ORDER LEVOPHED PER PROTOCOL, WILL CONTINUE WITH ORDERS.
[2020-02-18] MEDS ORDERED: NOREPINEPHRINE 4 MG in DEXTROSE 5% 250 ML IV PRN (14:05)
[2020-02-18] MEDS: NOREPINEPHRINE 4 MG in DEXTROSE 5% 250 ML IV PRN (15:17)
[2020-02-18] MEDS: REMDESIVIR (EUA) 100 MG in NACL 0.9% 100 ML IV SCH (17:07)
[2020-02-18] MEDS ORDERED: MORPHINE SULFATE 50 MG in NACL 0.9% 45 ML IV PRN (22:30)
[2020-02-18] MEDS ORDERED: MIDAZOLAM MDV 50 MG in NACL 0.9% 40 ML IV PRN (22:30)
--- NOTE | 2020-02-18 23:12 | NUR ---
SPOKE W/ DR PARISI REGARDING PT SPO2 (LOW 80s 82-84%) AND DR PARISI INSTRUCTED TO RAISE PEEP TO 13 (CURRENT PEEP 11 FIO2 REMAINS 100%). CHANGES MADE TO VENT
[2020-02-19] VITALS (20 sets, daily range): BP systolic 118–163; BP diastolic 61–89
--- NOTE | 2020-02-19 01:44 | NUR ---
FOUND PT ON AC/VC 16 550 PEEP 11 100% ALARMS ARE SET AND AUDIBLE AMBUBAG IS PRESENT AT BEDSIDE ETT IS A 7.0 @22 VENT IS PLUGGED INTO RED OUTLET. PT IN NO OBVIOUS DISTRESS AT THIS TIME.
[2020-02-19] MEDS: PROPOFOL 1000 MG/100 ML PREMIX 100 ML IV PRN ×3 (03:00→23:30)
--- NOTE | 2020-02-19 07:30 | NUR ---
RECEIVED REPORT FROM SHIFT CHANGE. PATIENT WAS SEEN AND ASSESSED. FOUND PT IN SUPINE POSITION. PATIENT IS INTUBATED WITH ETT SIZE 7.0 AND SECURED WITH ANCHOR-FAST AT 22cm. PATIENT IS ON VENT SETTINGS: AC/VC RR 16, VT 550, PEEP 13, FiO2 100% WITH SPO2 OF 95%. AMBU BAG AT BEDSIDE. VENT IS PLUGGED IN RED OUTLET. ALARMS SET AND AUDIBLE TO ENVIRONMENT. SUCTIONED NONE TO SCANT CLEAR/WHITE THIN SECRETIONS FROM ETT. AIRWAY IS PATENT. AUSCULTATION REVEALS BILATERAL RALES/DIMINISHED BREATH SOUNDS. PATIENT IS IN NO APPARENT RESPIRATORY DISTRESS AT THIS TIME. WILL CONTINUE TO MONITOR PATIENT.
[2020-02-19] MEDS: FAMOTIDINE 20 MG TAB NG SCH (09:00)
[2020-02-19] MEDS: TAMSULOSIN 0.4 MG CAP PO SCH (09:00)
[2020-02-19] MEDS: VITAMIN D 400 IU TAB PO SCH (09:00)
[2020-02-19] MEDS: ASCORBIC ACID 500 MG TAB PO SCH (09:00)
[2020-02-19 09:03] LABS: BASOPHILS % (AUTO) 0.3 % (0.0-2.0); HEMATOCRIT 38.3 % (36-52); HEMOGLOBIN 12.5 g/dL (12.0-18.0); LYMPHOCYTES # (AUTO) 0.1 K/uL (2.0-11.5); LYMPHOCYTES % (AUTO) 1.3 % (20.5-51.1); MEAN CORPUSCULAR HEMOGLOBIN 29 pg (27-31); MEAN CORPUSCULAR HGB CONC 33 g/dL (33-37); MEAN CORPUSCULAR VOLUME 89.2 fL (80-94); MONOCYTES # (AUTO) 0.2 K/uL (0.8-1.0); MONOCYTES % (AUTO) 1.8 % (1.7-9.3); NEUTROPHILS # (AUTO) 10.5 K/uL (1.8-7.7); NEUTROPHILS % (AUTO) 96.6 % (42.2-75.2); PLATELET COUNT (AUTO) 133 K/uL (140-450); RED BLOOD CELL COUNT(AUTO) 4.29 MIL/uL (4.20-6.10); RED CELL DISTRIBUTION WIDTH 15.2 % (11.6-13.7); WHITE BLOOD COUNT (AUTO) 10.9 K/uL (4.8-10.8)
[2020-02-19 09:04] LABS: ALBUMIN 1.6 g/dL (3.4-5.0); ANION GAP 9.4 (8-16); CARBON DIOXIDE 31.6 mmol/L (21-32); CREATININE 1.5 mg/dL (0.6-1.3); TOTAL BILIRUBIN 0.7 mg/dL (0.0-1.0)
[2020-02-19] MEDS: NACL 0.9% 1,000 ML IV SCH ×2 (09:05→19:05)
[2020-02-19] MEDS ORDERED: MIDAZOLAM MDV 100 MG in NACL 0.9% 80 ML IV PRN (13:45)
--- NOTE | 2020-02-19 14:00 | NUR ---
RECEIVED REPORT FROM CONSUELO VOGT. PT IN BED, SUPINE POSITION, SEDATED TO RASS -3. ETT TO VENT: ACVC 100% FIO2, RR 16, PEEP 13, NO SIGNS OF ACUTE DISTRESS NOTED. OG TUBE IN PLACE, FEEDING NOT RUNNING AT THIS TIME. HINES CATHETER IN PLACE, DRAINING TO GRAVITY. LFA 22 G, PAU PICC, CLEAN DRY INTACT, INFUSING: NS @ 100 ML/HR, PROPOFOL @ 40 MCG/KG/MIN. HOB 30 DEGREES, BED IN LOW POSITION, DIRECTOR ZONE IN PLACE. SAFETY MEASURES IN PLACE.
[2020-02-19] MEDS: REMDESIVIR (EUA) 100 MG in NACL 0.9% 100 ML IV SCH (17:25)
--- NOTE | 2020-02-19 19:20 | NUR ---
ENDORSED PATIENT TO VENEER REPAIRER MACHINE NURSE FOR CONTINUITY OF CARE. PATIENT STABLE AT THIS TIME.
--- NOTE | 2020-02-19 20:42 | NUR ---
ETT ADVANCED TO 23CM FOUND ETT @ 19CM AND PT RECIEVING 1/2 SET VT (250) AFTER ADVANCEMENT PT RECIEVING CORRECT/ADEQUATE VT (550-600) PENDING CXR FOR TUBE PLACEMENT PT PEAK PRESSURES 45-48 PT WAS CHANGED TO PC Pinsp 22 +13, f16 100% PT RECIEVING VOLUMES 540 - 560 W/ PIP OF [address] REED PENDING CALL BACK TO INFORM OF SETTINGS CHANGE PT SEAMS TO BE TOLERATING WELL AT THIS TIME Addendum: 02/19/20 at 2048 by Pedro Villavicencio Jr RT PREV SETTINGS ACVC 550 +13, f16 100%
--- NOTE | 2020-02-19 20:57 | NUR ---
PEEP TITRATED TO 12 PT SPO2 95% AT THIS TIME AND TOLERATING WELL SPOKE W/ DR PARISI INFORMED OF VENT CHANGES DR AGREES W/ CHANGES AND AGREES TO TITRATE PEEP DOWN SLOWLY TOLERATED DR PARISI REQUESTING ABG IN AM
[2020-02-20] VITALS (29 sets, daily range): BP systolic 116–164; BP diastolic 51–87
[2020-02-20] MEDS: MORPHINE SULFATE 50 MG in NACL 0.9% 45 ML IV PRN ×2 (00:30→21:18)
[2020-02-20] MEDS: NACL 0.9% 1,000 ML IV SCH ×2 (05:05→15:05)
[2020-02-20 06:32] LABS: BASOPHILS % (AUTO) 0.2 % (0.0-2.0); EOSINOPHILS % (AUTO) 0.1 % (0.0-4.0); HEMATOCRIT 38.7 % (36-52); HEMOGLOBIN 12.5 g/dL (12.0-18.0); LYMPHOCYTES # (AUTO) 0.2 K/uL (2.0-11.5); LYMPHOCYTES % (AUTO) 1.7 % (20.5-51.1); MEAN CORPUSCULAR HEMOGLOBIN 29 pg (27-31); MEAN CORPUSCULAR HGB CONC 32 g/dL (33-37); MEAN CORPUSCULAR VOLUME 90.1 fL (80-94); MONOCYTES # (AUTO) 0.3 K/uL (0.8-1.0); MONOCYTES % (AUTO) 3.1 % (1.7-9.3); NEUTROPHILS # (AUTO) 9.4 K/uL (1.8-7.7); NEUTROPHILS % (AUTO) 94.9 % (42.2-75.2); PLATELET COUNT (AUTO) 126 K/uL (140-450); RED CELL DISTRIBUTION WIDTH 15.3 % (11.6-13.7); WHITE BLOOD COUNT (AUTO) 9.9 K/uL (4.8-10.8)
[2020-02-20 06:51] LABS: ALBUMIN 1.5 g/dL (3.4-5.0); ANION GAP 9.8 (8-16); CARBON DIOXIDE 30.1 mmol/L (21-32); CREATININE 1.3 mg/dL (0.6-1.3); POTASSIUM 4.9 mmol/L (3.5-5.1); TOTAL BILIRUBIN 0.7 mg/dL (0.0-1.0)
[2020-02-20] MEDS: PROPOFOL 1000 MG/100 ML PREMIX 100 ML IV PRN ×4 (07:15→23:47)
--- NOTE | 2020-02-20 07:30 | NUR ---
RECEIVED REPORT FROM AROMATHERAPIST NURSEYELITZA. PT IN BED, SUPINE POSITION, SEDATED TO RASS -3. ETT TO VENT: ACPC 100% FIO2, RR 16, PEEP 12, NO SIGNS OF ACUTE DISTRESS NOTED. OG TUBE IN PLACE, FEEDING RUNNING.. HINES CATHETER IN PLACE, DRAINING TO GRAVITY. LFA 22 G, PAU PICC, CLEAN DRY INTACT, INFUSING: NS @ 100 ML/HR, PROPOFOL @ 50 MCG/KG/MIN, MORPHINE @ 2 MG/HR. HOB 30 DEGREES, BED IN LOW POSITION, HOCKEY INSTRUCTOR IN PLACE. SAFETY MEASURES IN PLACE.
--- NOTE | 2020-02-20 08:21 | NUR ---
SPOKE W/ DR ANDERSON REGARDINFG CRITICAL ABG RESULTS PH 7.232 CO2 71.2 PO2 67.8 [address] ANDERSON REQUESTING INCREASE RATE TO 22 CHANGES WILL BE MADE
[2020-02-20] MEDS: FAMOTIDINE 20 MG TAB NG SCH (08:42)
[2020-02-20] MEDS: TAMSULOSIN 0.4 MG CAP PO SCH (08:43)
--- NOTE | 2020-02-20 08:55 | NUR ---
ADMINISTERED SCHEDULED MEDS PER MD ORDER. MED EDUCATION PROVIDED, REINFORCEMENT NEEDED. OG TUBE RESIDUAL, >600 ML, FLUSHED BEFORE AND AFTER MEDS, FEEDING STOPPED AT THIS TIME DUE TO HIGH RESIDUAL. MORNING HYGIENE PROVIDED: ORAL CARE, HCG BATH, CATHETER CARE. PT REPOSITIONED AND OFFLOADED PRESSURE WITH PILLOWS. METER ATTENDANT IN PLACE. SAFETY MEASURES IN PLACE.
--- NOTE | 2020-02-20 09:40 | NUR ---
RECEIVED ON A [employer] R860 VENTILATOR PLUGGED INTO RED OUTLET TOLERATING WELL WITHOUT ADVERSE REACTIONS NOTED TO AN ENDOTRACHEAL TUBE #7.0 SECURED AT 22cm TEETH GUM LINE WITH AN ANCHOR FAST AMBU BAG AT BEDSIDE LOC SEDATED RESTING COMFORTABLY EQUAL CHEST RISE GOOD AERATION THROUGHOUT BILATERAL LUNG AGUILAR AIRWAY PATENT PER ABG SAMPLE REPORT AND TORBO DR. JADE ANDERSON INCREASED RATE TO 22 BPM Addendum: 02/20/20 at 1110 by Rex Woo RT CATRESCAPE = CARES[place]E
--- NOTE | 2020-02-20 14:52 | NUR ---
SEDATED RESTING WELL EQUAL CHEST RISE GOOD AERATION THROUGHOUT BILATERAL LUNG AGUILAR AIRWAY PATENT
--- NOTE | 2020-02-20 16:20 | NUR ---
02/20/20 RD FOLLOW UP COMPLETED PLEASE REFER TO NUTRITION ASSESSMENT UNDER CARE ACTIVITY FOR ESTIMATED NUTRITIONAL NEEDS. 1. CURRENT TUBE FEEDING IS VITAL AF 1.2 @ 45 ML/HR WITH PROSOURCE BID ; FLUSH OF 100 ML Q4H - THIS WILL PROVIDE 1080 ML OF VOLUME, 1416 KCAL AND 111 GM PRO/DAY. 2. RECOMMEND REGLAN 3. RECOMMEND INCREASING VITAL 1.2 @ 60ML/HR -THIS PROVIDES 1440 ML OF VOLUME, 1728 KCAL AND 108 GM OF PROTEIN, MEETING 100% OF KCAL AND PROTEIN NEEDS. 4. RD TO FOLLOW-UP 2-3 DAYS, HIGH RISK SRINIVASA NEELY RD
[2020-02-20] MEDS: REMDESIVIR (EUA) 100 MG in NACL 0.9% 100 ML IV SCH (17:06)
--- NOTE | 2020-02-20 19:20 | NUR ---
ENDORSED PATIENT TO LIVESTOCK TRADER NURSE FOR CONTINUITY OF CARE. PATIENT STABLE AT THIS TIME.
[2020-02-21] VITALS (26 sets, daily range): BP systolic 92–120; BP diastolic 48–57
[2020-02-21] MEDS: NACL 0.9% 1,000 ML IV SCH ×3 (00:29→21:05)
[2020-02-21] MEDS: ACETAMINOPHEN 325 MG TAB PO PRN (00:29)
[2020-02-21 06:33] LABS: BASOPHILS % (AUTO) 0.1 % (0.0-2.0); HEMATOCRIT 40.5 % (36-52); HEMOGLOBIN 12.8 g/dL (12.0-18.0); LYMPHOCYTES # (AUTO) 0.1 K/uL (2.0-11.5); LYMPHOCYTES % (AUTO) 1.3 % (20.5-51.1); MEAN CORPUSCULAR HEMOGLOBIN 29 pg (27-31); MEAN CORPUSCULAR HGB CONC 32 g/dL (33-37); MEAN CORPUSCULAR VOLUME 92.5 fL (80-94); MONOCYTES # (AUTO) 0.2 K/uL (0.8-1.0); MONOCYTES % (AUTO) 2.4 % (1.7-9.3); NEUTROPHILS # (AUTO) 8.9 K/uL (1.8-7.7); NEUTROPHILS % (AUTO) 96.2 % (42.2-75.2); PLATELET COUNT (AUTO) 93 K/uL (140-450); RED BLOOD CELL COUNT(AUTO) 4.38 MIL/uL (4.20-6.10); RED CELL DISTRIBUTION WIDTH 16.3 % (11.6-13.7); WHITE BLOOD COUNT (AUTO) 9.2 K/uL (4.8-10.8)
[2020-02-21 07:23] LABS: MAGNESIUM 3.1 mg/dL (1.8-2.4); PHOSPHORUS 5.4 mg/dL (2.5-4.9)
--- NOTE | 2020-02-21 07:30 | NUR ---
RECEIVED REPORT FROM CYTOGENETIC TECHNOLOGIST NURSEYELITZA. PT IN BED, SUPINE POSITION, SEDATED TO RASS -3. ETT TO VENT: ACPC 100% FIO2, RR 20, PEEP 12, SPO2 96%, NO SIGNS OF ACUTE DISTRESS NOTED. OG TUBE IN PLACE, FEEDING NOT RUNNING. HINES CATHETER IN PLACE, DRAINING TO GRAVITY. LFA 22 G, PAU PICC, CLEAN DRY INTACT, INFUSING: NS @ 100 ML/HR, PROPOFOL @ 50 MCG/KG/MIN, MORPHINE @ 2 MG/HR. HOB 30 DEGREES, BED IN LOW POSITION, RAG ROOM SUPERVISOR IN PLACE. SAFETY MEASURES IN PLACE.
[2020-02-21] MEDS: FAMOTIDINE 20 MG TAB NG SCH (08:27)
[2020-02-21] MEDS: TAMSULOSIN 0.4 MG CAP PO SCH (08:28)
--- NOTE | 2020-02-21 08:30 | NUR ---
ADMINISTERED SCHEDULED MEDS PER MD ORDER. MED EDUCATION PROVIDED, REINFORCEMENT NEEDED. LOVENOX HELD DUE TO PLATELETS: 93. OG TUBE RESIDUAL 5 ML, FLUSHED BEFORE AND AFTER MEDS. MORNING HYGIENE PROVIDED: ORAL CARE, CATHETER CARE, HCG BATH, CHANGED ALL DIRTY LINEN. PATIENT REPOSITIONED AND OFFLOADED PRESSURE WITH LINENS. ACTIVITY TOLERATED WELL, NO SIGNS OF ACUTE DISTRESS NOTED. PRODUCTION LINE MECHANIC IN PLACE, SAFETY MEASURES IN PLACE.
[2020-02-21 09:08] LABS: ALBUMIN 1.5 g/dL (3.4-5.0); ANION GAP 13.6 (8-16); CARBON DIOXIDE 26.9 mmol/L (21-32); CREATININE 1.4 mg/dL (0.6-1.3); POTASSIUM 5.5 mmol/L (3.5-5.1); TOTAL BILIRUBIN 0.5 mg/dL (0.0-1.0)
--- NOTE | 2020-02-21 12:30 | NUR ---
1140: RECEIVED A CALL FROM [employer], INFORMING ME OF CRITICAL LAB BUN 85. DR. SEN MADE AWARE.
[2020-02-21] MEDS: MORPHINE SULFATE 50 MG in NACL 0.9% 45 ML IV PRN (17:51)
[2020-02-21] MEDS: PROPOFOL 1000 MG/100 ML PREMIX 100 ML IV PRN ×2 (19:10→23:00)
[2020-02-22] VITALS (27 sets, daily range): BP systolic 86–137; BP diastolic 48–77
[2020-02-22 06:09] LABS: BASOPHILS % (AUTO) 0.3 % (0.0-2.0); HEMATOCRIT 42.2 % (36-52); HEMOGLOBIN 13.1 g/dL (12.0-18.0); LYMPHOCYTES # (AUTO) 0.1 K/uL (2.0-11.5); LYMPHOCYTES % (AUTO) 1.6 % (20.5-51.1); MEAN CORPUSCULAR HEMOGLOBIN 29 pg (27-31); MEAN CORPUSCULAR HGB CONC 31 g/dL (33-37); MEAN CORPUSCULAR VOLUME 92.7 fL (80-94); MONOCYTES # (AUTO) 0.3 K/uL (0.8-1.0); MONOCYTES % (AUTO) 3.6 % (1.7-9.3); NEUTROPHILS # (AUTO) 7.4 K/uL (1.8-7.7); NEUTROPHILS % (AUTO) 94.5 % (42.2-75.2); PLATELET COUNT (AUTO) 77 K/uL (140-450); RED BLOOD CELL COUNT(AUTO) 4.55 MIL/uL (4.20-6.10); RED CELL DISTRIBUTION WIDTH 16.3 % (11.6-13.7); WHITE BLOOD COUNT (AUTO) 7.9 K/uL (4.8-10.8)
[2020-02-22] MEDS: NACL 0.9% 1,000 ML IV SCH ×2 (07:05→17:05)
--- NOTE | 2020-02-22 07:30 | NUR ---
RECEIVED REPORT FROM MILITARY COMMUNICATIONS SPECIALIST NURSE. PT IN BED SUPINE, hob elevated, AC/PC 100% P10 R22, SPO2 93%. FLACC 0, NO SOB. NO SIGNS OF ACUTE DISTRESS NOTED. HINES CATHETER IN PLACE, DRAINING TO GRAVITY. PAU PICC CLEAN DRY INTACT, INFUSING: PROPOFOL @ 30 MCG/KG/HR, NS @ 80 ML/HR, MORPHINE 2MG/HR. OGT TO FEEDING. GENERAL REPAIR MECHANIC IN PLACE. SAFETY MEASURES IN PLACE. ISOLATION PRECAUTION IN PLACE. WILL CONTINUE TO MONITOR
--- NOTE | 2020-02-22 07:35 | NUR ---
REC'D PT ON [facility] VENT SETTINGS PC 22 RR 22 ITIME 0.7 PEEP 12 FIO2 100% ALARMS ON AND AUDIBLE AND VENT IS PLUGGED INTO RED OUTLET, B\S ARE CLEAR BILATERALLY, PT IS ORALLY INTUBATED WITH ETT 7.0 AT 23CM SXN PT SMALL AMT OF WHITE SECRETIONS, PT IS RESTING
[2020-02-22] MEDS: PROPOFOL 1000 MG/100 ML PREMIX 100 ML IV PRN ×3 (08:28→15:53)
--- NOTE | 2020-02-22 08:50 | NUR ---
DUE MORNING MEDS GIVEN. TOLERATED WELL
[2020-02-22] MEDS: TAMSULOSIN 0.4 MG CAP PO SCH (09:30)
[2020-02-22] MEDS: FAMOTIDINE 20 MG TAB NG SCH (09:30)
[2020-02-22] MEDS ORDERED: SODIUM ZIRCONIUM CYCLOSILICATE 10 GM POWD.PACK PO SCH (11:00)
--- NOTE | 2020-02-22 12:30 | NUR ---
SEEN BY DR ANDERSON. TITRATED FIO2 TO 85%
[2020-02-22] MEDS ORDERED: MORPHINE SULFATE 50 MG in NACL 0.9% 45 ML IV PRN (13:41)
--- NOTE | 2020-02-22 17:30 | NUR ---
AFTER TURNING AND REPOSITIONING, O2SAT DROPPED TO 70%, BP TO 85/48. RT NOTIFIED, INCREASED FIO2 TO 100%, CANNOT INCREASES PEEP UNTIL BP IS HIGHER. STARTED ON LEVOPHED ORDERED
--- NOTE | 2020-02-22 19:20 | NUR ---
ASSUMED RESPONSIBILITY OF CARE AT THIS TIME. PT REPORT RECEIVED AT WINDOW, FOR CONTINUITY OF CARE. SEDATED TO RASS -3, PER MD ORDERS. PUPILS 3MM, PERRL, SLUGGISH. ETT TO VENT WITH SETTINGS FOLLOWS: ACPC: FIO2 @ 100%, PEEP 10, RT 22. LUNG SOUNDS DIMINISHED THROUGHOUT. +S1, S2 NOTED. SR ON MONITOR. DESATING @ 75%, RT AWARE. OGT IN PLACE INFUSING FEEDING, PER ORDERS. ZERO RESIDUAL ASPIRATED. + PLACEMENT NOTED VIA AIR BOLUS. BOWEL SOUNDS ACTIVE X4. NO DISTENTION NOTED. HINES IN PLACE DRAINING CLEAR, LIGHT GIOVANI URINE TO GRAVITY. SKIN WARM, DRY, AND INTACT. SAFETY PRECAUTIONS IN PLACE WITH BED LOW AND LOCKED. HOB> 30 DEGREES.
--- NOTE | 2020-02-22 21:00 | NUR ---
PT CONTINUES TO DESAT ON CURRENT SETTINGS. MD AWARE. FIO2 REMAINS @ 100%, PEEP AT 10, CONTINUES ON PRESSORS TO MAINTAIN BP. PHONED FAMILY TO MAKE THEM AWARE AT THIS TIME.
[2020-02-22] MEDS: NOREPINEPHRINE 4 MG in DEXTROSE 5% 250 ML IV PRN (21:07)
[2020-02-23] VITALS (9 sets, daily range): BP systolic 49–99; BP diastolic 15–54
[2020-02-23] MEDS: PROPOFOL 1000 MG/100 ML PREMIX 100 ML IV PRN (00:08)
--- NOTE | 2020-02-23 04:04 | NUR ---
SPOKE WITH DR MISTRY AT THIS TIME R/T HYPOTENSION AND DESATURATION. NEW ORDERS OBTAINED AND IMPLEMENTED. SEE V/S SPREADSHEET.
[2020-02-23] MEDS ORDERED: PHENYLEPHRINE 40 MG in NACL 0.9% 250 ML IV PRN (04:05)
[2020-02-23] MEDS ORDERED: PHENYLEPHRINE 10 MG/ML VIAL ONE (04:17)
--- NOTE | 2020-02-23 04:43 | NUR ---
INITIATED CODE BLUE AT THIS TIME. SEE CODE BLUE SHEET
--- NOTE | 2020-02-23 04:57 | NUR ---
CODE BLUE ENDED AT THIS TIME. PT . SEE CODE BLUE SHEET. TOD 1964
--- NOTE | 2020-02-23 05:55 | NUR ---
CALLED [facility] AT THIS TIME TO REPORT EXPIRATION. RELEASED BODY TO [facility] AT THIS TIME. REFERENCE #: [id number].
--- NOTE | 2020-02-23 05:59 | NUR ---
REPORTED EXPIRATION TO [facility] AT THIS TIME. AWAITING CALL BACK FROM [employer].
--- NOTE | 2020-02-23 06:00 | NUR ---
SPOKE WITH ROEL, PTS SON, AT THIS TIME. NOTIFIED OF PTS PASSING. THEY WILL FOLLOW UP WITH MORTUARY DETAILS ANNAMARIE.
--- NOTE | 2020-02-23 06:30 | NUR ---
SCOTT RETURNED CALL AT THIS TIME. REVIEWED AND RELEASED BODY TO MORTUARY. REF # [id number] YATES.
== END 2020-02-23 08:45 | DRG 870 ==
LOC: MED 09:13 → MTU 17:39 → MMU 02-14 17:10 → MTU 02-14 17:11 → MMU 02-14 21:45
PROC: 5A09457 Assistance with Respiratory Ventilation, 24-96 Consecutive Hours, Continuous Positive Airway Pressure (ICD-10-PCS; 2020-02-14)
PROC: 0BH17EZ Insertion of Endotracheal Airway into Trachea, Via Natural or Artificial Opening (ICD-10-PCS; principal; 2020-02-16)
PROC: 5A1955Z Respiratory Ventilation, Greater than 96 Consecutive Hours (ICD-10-PCS; 2020-02-16)
PROC: XW033E5 Introduction of Remdesivir Anti-infective into Peripheral Vein, Percutaneous Approach, New Technology Group 5 (ICD-10-PCS; 2020-02-16)
PROC: 5A09357 Assistance with Respiratory Ventilation, Less than 24 Consecutive Hours, Continuous Positive Airway Pressure (ICD-10-PCS; 2020-02-16)
PROC: 02HV33Z Insertion of Infusion Device into Superior Vena Cava, Percutaneous Approach (ICD-10-PCS; 2020-02-18)
PROC: B548ZZA Ultrasonography of Superior Vena Cava, Guidance (ICD-10-PCS; 2020-02-18)
PROC: XW13325 Transfusion of Convalescent Plasma (Nonautologous) into Peripheral Vein, Percutaneous Approach, New Technology Group 5 (ICD-10-PCS; 2020-02-22)
PROC: 5A12012 Performance of Cardiac Output, Single, Manual (ICD-10-PCS; 2020-02-23)
DX: A41.89 Other specified sepsis (principal); U07.1 COVID-19; J12.82 Pneumonia due to coronavirus disease 2019; E43 Unspecified severe protein-calorie malnutrition; J96.01 Acute respiratory failure with hypoxia; N17.0 Acute kidney failure with tubular necrosis; I21.A1 Myocardial infarction type 2; G93.40 Encephalopathy, unspecified; D68.59 Other primary thrombophilia; E87.1 Hypo-osmolality and hyponatremia; I46.9 Cardiac arrest, cause unspecified; J98.2 Interstitial emphysema; F41.9 Anxiety disorder, unspecified; N40.0 Benign prostatic hyperplasia without lower urinary tract symptoms; M19.90 Unspecified osteoarthritis, unspecified site; R79.89 Other specified abnormal findings of blood chemistry; R74.01 Elevation of levels of liver transaminase levels; E86.0 Dehydration; E78.5 Hyperlipidemia, unspecified; E05.90 Thyrotoxicosis, unspecified without thyrotoxic crisis or storm; E83.42 Hypomagnesemia; E83.39 Other disorders of phosphorus metabolism; E78.00 Pure hypercholesterolemia, unspecified; R40.2430 Glasgow coma scale score 3-8, unspecified time; Z79.899 Other long term (current) drug therapy; Z68.27 Body mass index [BMI] 27.0-27.9, adult
CPT/HCPCS: 36415; 36600; 71045; 80053; 80305; 81001; 82150; 82550; 82728; 82803; 83036; 83605; 83615; 83690; 83735; 83880; 84100; 84134; 84436; 84443; 84484; 85025; 85379; 85384; 85610; 85651; 85730; 86140; 86886; 86900; 86901; 87040; 87081; 87086; 87420; 87804; 93005; 94003; 96361; 96374; 99291; J0456; J0696; J1644; J1650; J2060; J2250; J2270; J2370; J2704; J3475; J3490; J7030; J7060; P9017; U0003